=== PATIENT | female | born 1935 | race Caucasian/White ===

== ENCOUNTER 2021-08-18 13:03 | Emergency (ER) | payer OTHER ==
[2021-08-18] MEDS ORDERED: Amoxicillin/Potassium Clav 875 MG TAB ONE (14:27)
== END 2021-08-18 15:04 | disposition home or self-care (01) ==
LOC: MADERS 13:03
DX: S06.0X1A Concussion with loss of consciousness of 30 minutes or less, initial encounter (principal); S01.111A Laceration without foreign body of right eyelid and periocular area, initial encounter; W01.0XXA Fall on same level from slipping, tripping and stumbling without subsequent striking against object, initial encounter
CPT/HCPCS: 12054; 70450; 70486